=== PATIENT | female | born 1980 | race Two or more races ===

== ENCOUNTER 2019-04-28 19:49 | Emergency (ER) | payer OTHER ==
[~2019-04-28] VITALS: Ht 167.6 cm; Wt 73.8 kg
[2019-04-28 20:37] LABS: BASOPHILS # (AUTO) 0.02 x10^3/uL (0-0.1); BASOPHILS % (AUTO) 0 % (0-1); EOSINOPHILS % (AUTO) 2 % (1-7); LYMPHOCYTES # (AUTO) 2.22 x10^3/uL (1-3.4); LYMPHOCYTES % (AUTO) 37 % (22-44); MD NO; MEAN CORPUSCULAR HEMOGLOBIN 30.4 pg (27.0-34.8); MEAN CORPUSCULAR HGB CONC 33.3 g/dL (32.4-35.8); MEAN CORPUSCULAR VOLUME 91.2 fL (80-100); MEAN PLATELET VOLUME 10.3 fL (7.4-10.4); MONOCYTES # (AUTO) 0.58 x10^3/uL (0.2-0.8); MONOCYTES % (AUTO) 10 % (2-9); NEUTROPHILS # (AUTO) 3.04 x10^3/uL (1.8-6.8); NEUTROPHILS % (AUTO) 51 % (42-75); PLATELET COUNT 235 x10^3/uL (130-400); RED BLOOD COUNT 4.12 x10^6/uL (3.82-5.3); RED CELL DISTRIBUTION WIDTH 13.3 % (9.6-15.2)
[2019-04-28 20:41] LABS: MICROSCOPIC AUTO
[2019-04-28 20:48] LABS: CULTURE INDICATED? NO
[2019-04-28 20:48] LABS: ALANINE AMINOTRANSFERASE 25 U/L (12-78); ALBUMIN 3.4 g/dL (3.4-5.0); ANION GAP 6 mmol/L (5-15); CALCIUM 8.9 mg/dL (8.5-10.1); CHLORIDE 108 mmol/L (98-107); CREATININE 0.91 mg/dL (0.55-1.02)
[2019-04-28 20:53] LABS: ALKALINE PHOSPHATASE 77 U/L (45-117); BILIRUBIN,TOTAL 0.2 mg/dL (0.2-1.0); TOTAL PROTEIN 7.8 g/dL (6.4-8.2)
[2019-04-28 21:37] VITALS: BP 123/79
== END 2019-04-28 22:15 | disposition home or self-care (01) ==
LOC: ED 22:00
DX: K59.00 Constipation, unspecified (principal); R10.84 Generalized abdominal pain
CPT/HCPCS: 36415; 74018; 80053; 81001; 84703; 85025; 99284

== ENCOUNTER 2020-07-18 16:23 | Emergency (ER) | payer SELFPAY ==
[~2020-07-18] VITALS: Ht 165.1 cm; Wt 71.0 kg
--- NOTE | 2020-07-18 17:35 | NUR ---
PEDIATRIC UROLOGIST: CALL NO ANSWER
--- NOTE | 2020-07-18 17:47 | NUR ---
CHARGE NURSE: CALLED PATIENT NO ANSWER
--- NOTE | 2020-07-18 18:03 | NUR ---
SCREEN TENDER HELPER: CALLED NO ANSWER
--- NOTE | 2020-07-18 19:04 | NUR ---
pt was in lobby, back to room 15
--- NOTE | 2020-07-18 19:04 | NUR ---
PT BACK IN LOBBY. OBSTETRICIAN AND GYNAECOLOGIST AWARE.
[2020-07-18 19:36] LABS: BASOPHILS % (AUTO) 0 % (0-1); EOSINOPHILS % (AUTO) 2 % (1-7); LYMPHOCYTES % (AUTO) 38 % (22-44); MEAN CORPUSCULAR HEMOGLOBIN 31.2 pg (27.0-34.8); MEAN CORPUSCULAR HGB CONC 34.1 g/dL (32.4-35.8); MEAN PLATELET VOLUME 9.4 fL (7.4-10.4); MONOCYTES % (AUTO) 7 % (2-9); NEUTROPHILS % (AUTO) 53 % (42-75); PLATELET COUNT 238 x10^3/uL (130-400); RED BLOOD COUNT 4.09 x10^6/uL (3.82-5.3); RED CELL DISTRIBUTION WIDTH 13.4 % (9.6-15.2)
[2020-07-18 19:38] LABS: ALANINE AMINOTRANSFERASE 19 U/L (12-78); ALBUMIN 3.4 g/dL (3.4-5.0); ANION GAP 6 mmol/L (5-15); CALCIUM 8.5 mg/dL (8.5-10.1); CHLORIDE 109 mmol/L (98-107); CREATININE 0.72 mg/dL (0.55-1.02)
[2020-07-18 19:42] LABS: ALKALINE PHOSPHATASE 67 U/L (45-117); BILIRUBIN,TOTAL 0.2 mg/dL (0.2-1.0); TOTAL PROTEIN 7.3 g/dL (6.4-8.2)
[2020-07-18 19:43] LABS: MD NO
[2020-07-18 20:05] LABS: MICROSCOPIC AUTO
[2020-07-18] MEDS ORDERED: NAPROXEN 500 MG TABLET ONE (20:27)
[2020-07-18 20:30] VITALS: BP 103/74
[2020-07-18] MEDS ORDERED: NAPROXEN 500 MG TABLET PO ONE (20:30)
== END 2020-07-18 18:04 | disposition home or self-care (01) ==
LOC: ED 17:58
DX: R10.2 Pelvic and perineal pain (principal)
CPT/HCPCS: 36415; 76830; 80053; 81001; 84703; 85025; 99284